=== PATIENT | female | born 1990 | race Caucasian/White ===

== ENCOUNTER 2016-07-21 20:53 | Emergency (ER) | payer BC, SELFPAY ==
[2016-07-21 21:01] VITALS: BP 116/72
--- NOTE | 2016-07-21 21:12 | EDM.PDOC ---
ED HPI GENERAL MEDICAL PROBLEM - General Chief Complaint: Genitourinary Problem Stated Complaint: possible UTI Time Seen by Provider: 07/21/16 21:03 Source of Information: Reports: Patient, RN, RN notes reviewed History Limitations: Reports: No limitations - History of Present Illness INITIAL COMMENTS - FREE TEXT/NARRATIVE: Patient presents to the ED at [facility] with symptoms of UTI. Patient states her symptoms began around 6pm this evening. Patient complains of hematuria, dysuria, frequency, and urgency. She has only had one UTI in the past several years ago. No risk for STD. No foul odor. No acute history of acute cystitis. No calcium metabolism disorders. No recent faye or instrumentation. Onset: today Onset Date: 07/21/16 Onset Time: 18:00 Duration: Getting worse Quality: Reports: Burning - Related Data Allergies Allergy/AdvReac Type Severity Reaction Status Date / Time codeine Allergy Cannot Verified 07/21/16 21:02 Remember Home Meds: Home Meds Escitalopram [Lexapro] 10 mg PO DAILY 07/21/16 [History] Nitrofurantoin [place]/Macrocryst [Macrobid] 100 mg PO BID #12 cap 07/21/16 [Rx] Past Medical History Psychiatric History: Reports: Depression Social & Family History - Family History Family Medical History: Noncontributory - Tobacco Use Smoking Status *Q: Never Smoker - Caffeine Use Caffeine Use: Reports: Coffee - Alcohol Use Alcohol Use History: No Alcohol Use in Last Twelve Months: No - Recreational Drug Use Recreational Drug Use: No Drug Use in Last 12 Months: No - Sexual History Sexual History: Reports: Sexually active, Single partner - Living Situation & Occupation Living situation: Reports: Occupation: employed ED ROS GENERAL - Review of Systems Review Of Systems: See Below Constitutional: Denies: fever, chills, weakness Respiratory: Denies: Shortness of Breath, Cough Cardiovascular: Denies: Chest pain, Palpitations GI/Abdominal: Denies: Abdominal pain, Nausea, Vomiting : Reports: dysuria, frequency, hematuria, urgency Skin: Reports: no symptoms Neurological: Reports: No Symptoms. Denies: Dizziness, Headache ED EXAM, RENAL/ - Physical Exam Exam: See Below Exam Limited By: No limitations General Appearance: alert, no apparent distress Respiratory/Chest: no respiratory distress, lungs clear, normal breath sounds Cardiovascular: regular rate, rhythm GI/Abdominal: Normal Bowel Sounds, Soft, Non-Tender (Female) Exam: Deferred Neurological: alert, oriented Skin Exam: Warm, Dry, Intact, Normal color, No rash Course - Vital Signs Last Recorded V/S: Last Vital Signs Temp 36.9 C 07/21/16 21:00 Pulse 85 07/21/16 21:00 Resp 14 07/21/16 21:00 BP 116/72 07/21/16 21:00 Pulse Ox 100 07/21/16 21:00 - Orders/Labs/Meds Orders: Active Orders 24 hr Category Date Time Status UA W/MICROSCOPIC [URIN] Stat Lab 07/21/16 21:33 Results Labs: Laboratory Tests 07/21/16 Range/Units 21:33 Urine Color Red H (YELLOW) Urine Appearance Turbid H (CLEAR) Urine pH 7.0 (5.0-8.0) Ur Specific [place] 1.020 Urine Protein >=300 H (NEGATIVE) mg/dL Urine Glucose (UA) Negative (NEGATIVE) mg/dL Urine Ketones Trace H (NEGATIVE) mg/dL Urine Occult Blood Large H (NEGATIVE) Urine Nitrite Positive H (NEGATIVE) Urine Bilirubin Moderate H (NEGATIVE) Urine Urobilinogen 1.0 (0.2) EU/dL Ur Leukocyte Esterase Large H (NEGATIVE) Meds: Medications Discontinued Medications Generic Name Dose Route Start Last Admin Trade Name Anjelica PRN Reason Stop Dose Admin Nitrofurantoin Macrocrystals 1 packet 07/21/16 21:16 Take Home: Nitrofur [place]/Ma 100 Mg, 2 Pack PO 07/21/16 21:17 ONETIME ONE Departure - Departure Time of Disposition: 21:40 Disposition: Home, Self-Care 01 Condition: good Clinical Impression: Acute cystitis with hematuria - Discharge Information Prescriptions: Nitrofurantoin [place]/Macrocryst [Macrobid] 100 mg PO BID #12 cap Instructions: Urinary Tract Infection, Adult Forms: ED Department Discharge Additional Instructions: 1. Stay well hydrated and rest 2. May use OTC Cystex or AZO for bladder discomfort 3. Recommend cranberry juice 4. Avoid sexual intercourse until infection has cleared 5. Take medications for the full coarse, even if you are feeling better 6. See your Primary as symptoms warrant - Problem List Review Problem List Initiated/Reviewed/Updated: Yes - My Orders Last 24 Hours: My Active Orders 07/21/16 21:33 UA W/MICROSCOPIC [URIN] Stat - Assessment/Plan Last 24 Hours: My Active Orders 07/21/16 21:33 UA W/MICROSCOPIC [URIN] Stat
[2016-07-21] MEDS ORDERED: Take Home: Nitrofurantoin Monohydrate/Macrocrystalline 100 MG, 2 Cap Pack PO ONE (21:16)
== END 2016-07-21 21:48 | disposition home or self-care (01) ==
LOC: VM.ED 20:53
DX: N30.01 Acute cystitis with hematuria (principal); Z88.5 Allergy status to narcotic agent
CPT/HCPCS: 81001; 99283; A9270

== ENCOUNTER 2020-12-06 19:15 | Emergency (ER) | payer BC, OTHER, SELFPAY ==
[2020-12-06] MEDS ORDERED: Take Home: Sulfamethoxazole/Trimethoprim 800-160 MG Tab, 2 Tab Pack PO ONE (19:48)
[2020-12-06] MEDS ORDERED: Take Home: Phenazopyridine 95 MG Tab, 4 Tab Pack ONE (19:48)
--- NOTE | 2020-12-06 19:48 | EDM.PDOC ---
ED HPI GENERAL MEDICAL PROBLEM - General Chief Complaint: Genitourinary Problem Stated Complaint: POSSIBLE UTI Time Seen by Provider: 12/06/20 19:36 Source of Information: Reports: Patient History Limitations: Reports: No Limitations - History of Present Illness INITIAL COMMENTS - FREE TEXT/NARRATIVE: Jennifer is a 30 year old female who presents to ER with complaints of dysuria. Started having burning and frequency with urination this afternoon and didn't want to wait out the weekend with an infection. Denies nausea/vomiting. Has mild abdominal cramping. No back pain. No fevers. No pain with intercourse or vaginal discharge. Has had bladder infections in the past, usually come on quite quickly. Onset: Today, Sudden Duration: Hour(s):, Constant Location: Reports: Abdomen Quality: Reports: Burning Associated Symptoms: Denies: Chest Pain, Fever/Chills, Loss of Appetite, Nausea/Vomiting, Shortness of Breath - Related Data Allergies Allergy/AdvReac Type Severity Reaction Status Date / Time codeine Allergy Cannot Verified 07/21/16 21:02 Remember Home Meds: Home Meds Escitalopram [Lexapro] 10 mg PO DAILY 07/21/16 [History] Nitrofurantoin [place]/Macrocryst [Macrobid] 100 mg PO BID #12 cap 07/21/16 [Rx] Past Medical History Psychiatric History: Reports: Depression Social & Family History - Family History Family Medical History: No Pertinent Family History - Tobacco Use Tobacco Use Status *Q: Never Tobacco User - Caffeine Use Caffeine Use: Reports: Coffee - Sexual History Sexual History: Reports: Sexually Active, Single Partner - Living Situation & Occupation Living situation: Reports: Occupation: Employed ED ROS GENERAL - Review of Systems Review Of Systems: See Below Constitutional: Denies: Fever, Chills, Malaise, Weakness, Fatigue HEENT: Denies: Ear Pain, Rhinitis, Sinus Problem, Throat Pain Respiratory: Denies: Shortness of Breath, Cough Cardiovascular: Denies: Chest Pain, Edema, Lightheadedness Endocrine: Denies: Fatigue GI/Abdominal: Reports: Abdominal Pain. Denies: Constipation, Diarrhea, Decreased Appetite, Nausea, Vomiting : Reports: Dysuria, Frequency. Denies: Flank Pain, Hematuria Musculoskeletal: Reports: No Symptoms Skin: Reports: No Symptoms Neurological: Reports: No Symptoms Psychiatric: Reports: No Symptoms ED EXAM, RENAL/ - Physical Exam Exam: See Below Exam Limited By: No Limitations General Appearance: Alert, WD/WN, No Apparent Distress Ears: Normal External Exam, Normal TMs Nose: Normal Inspection, Normal Mucosa, No Blood Throat/Mouth: Normal Inspection, Normal Oropharynx Head: Normocephalic Neck: Normal Inspection, Supple, Non-Tender Respiratory/Chest: No Respiratory Distress, Lungs Clear, Normal Breath Sounds Cardiovascular: Regular Rate, Rhythm GI/Abdominal: Normal Bowel Sounds, Soft, Tender (mild tenderness to suprapubic area) Course - Orders/Labs/Meds Orders: Active Orders 24 hr Category Date Time Status CULTURE URINE [RM] Stat Lab 12/06/20 19:30 Received Labs: Laboratory Tests 12/06/20 Range/Units 19:30 Urine Color Light yellow (YELLOW) Urine Appearance Slightly cloudy H (CLEAR) Urine pH 7.0 (5.0-8.0) Ur Specific [place] 1.020 Urine Protein Negative (NEGATIVE) mg/dL Urine Glucose (UA) Negative (NEGATIVE) mg/dL Urine Ketones Negative (NEGATIVE) mg/dL Urine Occult Blood Moderate H (NEGATIVE) Urine Nitrite Negative (NEGATIVE) Urine Bilirubin Negative (NEGATIVE) Urine Urobilinogen 0.2 (0.2) EU/dL Ur Leukocyte Esterase Moderate H (NEGATIVE) Urine RBC 75-100 H (NOT SEEN) /HPF Urine WBC 50-75 H (NOT SEEN) /HPF Ur Squamous Epith Cells Moderate H (NOT SEEN) /HPF Urine Bacteria Occasional H (NOT SEEN) /HPF Urine Mucus Few H (NOT SEEN) /LPF - Re-Assessments/Exams Free Text/Narrative Re-Assessment/Exam: 12/06/20 19:49 UA positive. Discussed with patient. Departure - Departure Time of Disposition: 19:50 Disposition: Home, Self-Care 01 Condition: Good Clinical Impression: Acute cystitis with hematuria - Discharge Information *PRESCRIPTION DRUG MONITORING PROGRAM REVIEWED*: No *COPY OF PRESCRIPTION DRUG MONITORING REPORT IN PATIENT BEN: No Instructions: Urinary Tract Infection, Adult Referrals: Eric Solorio NP [Primary Care Provider] - Additional Instructions: 1. Push fluids 2. Tylenol for discomfort 3. Phenazopyridine 100 mg three times a day for discomfort. May obtain AZO as over the counter med if pain persists and take up to 3 days 4. Bactrim DS one BID for 5 days. 5. Follow up with primary care provider for persistent concerns. - My Orders Last 24 Hours: My Active Orders 12/06/20 19:30 CULTURE URINE [RM] Stat - Assessment/Plan Last 24 Hours: My Active Orders 12/06/20 19:30 CULTURE URINE [] Stat
== END 2020-12-06 20:10 | disposition home or self-care (01) ==
LOC: VM.ED 19:15
DX: N30.01 Acute cystitis with hematuria (principal); Z88.5 Allergy status to narcotic agent
CPT/HCPCS: 81001; 87086; 87088; 87186; 99283; 99284; A9270-GY